=== PATIENT | male | born 1955 | race Caucasian/White ===

== ENCOUNTER → 2017-05-31 | Outpatient (CLI) | payer BC ==
[~2017-05-31] MED LIST: ALLO300T PO; TAMS0.4C2 PO; WARF7.5T PO
== END | disposition home or self-care (01) ==
LOC: STAR 08:34
PROVIDERS: ATTEND Orthopaedic Surgery Adult Reconstructive Orthopaedic Surgery
DX: Z01.818 Encounter for other preprocedural examination (principal); M17.11 Unilateral primary osteoarthritis, right knee
CPT/HCPCS: 87081; 87147

== ENCOUNTER 2017-06-06 07:20 | Inpatient (IN) | payer BC ==
[~2017-06-06] VITALS: Ht 180.3 cm; Wt 112.0 kg
[~2017-06-06 07:20] MED LIST changes: +BACITRACIN 50,000 UNIT ONE; +TRANEXAMIC ACID 100 MG/ML, 10ML ONE
[2017-06-06] MEDS ORDERED: VANCOMYCIN PER PHARMACY MC STA (07:34)
[2017-06-06] MEDS ORDERED: LACTATED RINGERS 1,000 ML IV SCH (07:52)
[2017-06-06] MEDS ORDERED: ENOX100S5 SQ (07:54)
[2017-06-06] MEDS ORDERED: VANCOMYCIN 2,000 MG in SODIUM CHLORIDE 0.9% 500 ML IV ONE (08:00)
[2017-06-06] MEDS ORDERED: LIDOCAINE 1%, 2ML SQ PRN (08:00)
[2017-06-06] MEDS ORDERED: FENTANYL PF 100 MCG/2ML ONE ×3 (08:25→12:50)
[2017-06-06] MEDS ORDERED: MIDAZOLAM 1 MG/ML, 2ML ONE (08:25)
[2017-06-06] MEDS ORDERED: ONDANSETRON 2MG/ML, 2ML ONE (10:20)
[2017-06-06] MEDS ORDERED: METOCLOPRAMIDE 5 MG/ML, 2ML ONE (10:20)
[2017-06-06] MEDS ORDERED: SUCCINYLCHOLINE 20 MG/ML, 10ML ONE (10:20)
[2017-06-06] MEDS ORDERED: ROCURONIUM 10 MG/ML ONE (10:20)
[2017-06-06] MEDS ORDERED: PROPOFOL 10 MG/ML, 20ML ONE (10:20)
[2017-06-06] MEDS ORDERED: DEXAMETHASONE 4 MG/ML, 1ML ONE (10:20)
[2017-06-06] MEDS ORDERED: CEFAZOLIN 1,000 MG ONE (10:20)
[2017-06-06] MEDS ORDERED: HYDROmorphone 1 MG/ML, 1ML ONE (10:22)
[2017-06-06] MEDS: FENTANYL PF 100 MCG/2ML IV PRN ×2 (12:45→13:20)
[2017-06-06] MEDS ORDERED: OXYcodone 5 MG/5 ML ORAL.SOL UDC ONE (12:50)
[2017-06-06] MEDS ORDERED: OXYcodone 5 MG/5 ML ORAL.SOL UDC PO PRN (13:00)
[2017-06-06] MEDS ORDERED: DIAZEPAM 5 MG TABLET PO PRN (13:00)
[2017-06-06] MEDS ORDERED: MAGNESIUM HYDROXIDE 8%, 30ML UDC PO PRN (13:00)
[2017-06-06] MEDS ORDERED: ONDANSETRON 2MG/ML, 2ML IV PRN (13:00)
[2017-06-06] MEDS ORDERED: PROMETHAZINE 25 MG/ML, 1ML IV PRN (13:00)
[2017-06-06] MEDS ORDERED: PROMETHAZINE 12.5 MG SUPP PR PRN (13:00)
[2017-06-06] MEDS ORDERED: MIDAZOLAM 1 MG/ML, 2ML IV PRN (13:00)
[2017-06-06] MEDS ORDERED: ZOLPIDEM 5MG TABLET PO PRN (13:00)
[2017-06-06] MEDS ORDERED: ACETAMINOPHEN 325 MG TABLET PO PRN (13:00)
[2017-06-06] MEDS ORDERED: ALUMINUM/MAG/SIMETHICONE 30 ML UDC PO PRN (13:00)
[2017-06-06] MEDS ORDERED: INSTRUCTION SEE COMMENTS XX PRN (13:00)
[2017-06-06] MEDS ORDERED: HYDROmorphone 1 MG/ML, 1ML IV PRN ×2 (13:00)
[2017-06-06] MEDS ORDERED: PROMETHAZINE 25 MG/ML, 1ML IM PRN (13:00)
[2017-06-06] MEDS ORDERED: LORazepam 1MG TABLET PO PRN (13:00)
[2017-06-06] MEDS ORDERED: ONDANSETRON 4 MG TABLET PO PRN (13:00)
[2017-06-06] MEDS ORDERED: SENNA/DOCUSATE TABLET PO PRN (13:00)
[2017-06-06] MEDS ORDERED: BISACODYL 10 MG SUPP PR PRN (13:00)
[2017-06-06] MEDS ORDERED: ONDANSETRON 2MG/ML, 2ML IVPush PRN (13:00)
[2017-06-06] MEDS ORDERED: LABETALOL 5MG/ML, 20ML IV PRN (13:00)
[2017-06-06] MEDS ORDERED: MEPERIDINE/PF 25MG/0.5ML IVPush PRN (13:00)
[2017-06-06] MEDS ORDERED: hydrALAzine 20 MG/ML, 1ML IV PRN (13:00)
[2017-06-06] MEDS ORDERED: DIPHENHYDRAMINE 25 MG CAPSULE PO PRN (13:00)
[2017-06-06] MEDS ORDERED: ACETAMINOPHEN 650 MG/20.3 ML UDC PO SCH (14:00)
[2017-06-06 14:15] VITALS: BP 146/85
[2017-06-06] MEDS: KETOROLAC MC SCH ×2 (14:30→22:30)
[2017-06-06] MEDS: CELECOXIB MC SCH ×2 (14:30→22:30)
[2017-06-06] MEDS: CEFAZOLIN PMX 2GM/50ML 50 ML IVPB SCH (16:43)
[2017-06-06] MEDS: SODIUM CHLORIDE 0.9% 1,000 ML IV SCH (16:43)
[2017-06-06] MEDS: OXYcodone IR 5MG TABLET PO PRN ×3 (16:50→23:27)
[2017-06-06] MEDS ORDERED: WARFARIN 10 MG TABLET PO-COUM ONE (18:00)
[2017-06-06] MEDS ORDERED: WARFARIN 2.5 MG TABLET PO-COUM SCH (18:00)
[2017-06-06] MEDS: ACETAMINOPHEN 500 MG TABLET PO SCH (18:06)
[2017-06-06 19:53] VITALS: BP 136/82
[2017-06-06] MEDS: DOCUSATE 100 MG CAPSULE PO SCH (20:38)
[2017-06-07 00:21] VITALS: BP 127/82
[2017-06-07] MEDS: CEFAZOLIN PMX 2GM/50ML 50 ML IVPB SCH (00:52)
[2017-06-07] MEDS: SODIUM CHLORIDE 0.9% 1,000 ML IV SCH (01:50)
[2017-06-07] MEDS: ACETAMINOPHEN 500 MG TABLET PO SCH ×2 (02:17→11:12)
[2017-06-07 03:43] VITALS: BP 129/86
[2017-06-07 05:32] LABS: BLOOD UREA NITROGEN 12 mg/dL (7-18)
[2017-06-07] MEDS: OXYcodone IR 5MG TABLET PO PRN (05:39)
[2017-06-07] MEDS: CELECOXIB MC SCH (05:41)
[2017-06-07] MEDS: KETOROLAC MC SCH (05:41)
[2017-06-07] MEDS ORDERED: ENOXAPARIN 40 MG/0.4 ML SQ SCH (06:00)
[2017-06-07] MEDS: ENOXAPARIN 60 MG/0.6 ML SQ SCH ×3 (06:21→08:43)
[2017-06-07 08:31] VITALS: BP 145/79
[2017-06-07] MEDS: DOCUSATE 100 MG CAPSULE PO SCH (08:33)
[2017-06-07] MEDS ORDERED: ALLOPURINOL 300 MG TABLET PO SCH (09:00)
[2017-06-07] MEDS ORDERED: MULTIVITAMINS/MINERALS TABLET PO SCH (09:00)
[2017-06-07] MEDS ORDERED: TAMSULOSIN 0.4 MG CAP.ER.24H PO SCH (09:00)
[2017-06-07] MEDS ORDERED: ACET325T14 PO (09:33)
[2017-06-07] MEDS ORDERED: CELE200C PO (09:45)
[2017-06-07] MEDS ORDERED: ACET-1600 PO (09:45)
[2017-06-07] MEDS ORDERED: ENOX60SY4 SC (09:45)
[2017-06-07] MEDS ORDERED: OXYC5CAP2 PO (09:49)
[2017-06-07] MEDS ORDERED: DOCU-131 PO (09:50)
[2017-06-07] MEDS ORDERED: MULT-658 PO (11:33)
[2017-06-07] MEDS ORDERED: KETOROLAC 30 MG/1 ML IV SCH (13:00)
== END 2017-06-07 11:56 | disposition home or self-care (01) | DRG 470 ==
LOC: ORIP 07:20 → 4NOR 14:07 → DCLOUNGE 06-07 11:20
PROVIDERS: ADMIT Orthopaedic Surgery Adult Reconstructive Orthopaedic Surgery; ATTEND Orthopaedic Surgery Adult Reconstructive Orthopaedic Surgery
PROC: 0SRC0J9 Replacement of Right Knee Joint with Synthetic Substitute, Cemented, Open Approach (ICD-10-PCS; principal; 2017-06-06 09:30)
DX: M17.11 Unilateral primary osteoarthritis, right knee (principal)
CPT/HCPCS: 36415; 80048; 82040; 85018; 85610; 85730; C1713; J0690; J1100; J1170; J1650; J2250; J2405; J2704; J3010; J3370; J3490; C1776; J0330; J2765; J7030; J7040; J7120